=== PATIENT | male | born 1990 | race Caucasian/White ===

== ENCOUNTER 2016-11-06 02:05 | Emergency (ER) | payer BC, OTHER, SELFPAY ==
[2016-11-06] MEDS ORDERED: Fluorescein Opthalmic Strip ONE (02:26)
[2016-11-06] MEDS ORDERED: Neomycin-Polymyxin-Hc 7.5 ML BOT ONE (02:34)
== END 2016-11-06 02:45 | disposition home or self-care (01) ==
LOC: BURERS 02:05
DX: T15.01XA Foreign body in cornea, right eye, initial encounter (principal)
CPT/HCPCS: 65220